=== PATIENT | male | born 1965 | race Caucasian/White ===

== ENCOUNTER 2021-08-15 11:19 | Inpatient (IN) ==
--- NOTE | 2021-08-15 11:33 | Emergency Department Note ---
Impression & Plan Acute hypoxemic respiratory failure due to COVID-19, Pneumonia due to COVID-19 virus ED Provider Note NAME: BETTY ORANTES AGE: 55 SEX: M : 1965 ARRIVES VIA: Ambulance INFORMANT: Patient, ED PROVIDER(S): Rogerio Garcia MD Chief Complaint: Shortness of breath and cough, Covid positive, low oxygen HPI: Patient does present with the above symptoms. Patient states that they recently tested positive for Covid about a week ago but he said symptoms for about 11 days. The patient did have a monoclonal antibody infusion yesterday but noticed his oxygen to be low today at 8889%. The patient has had productive cough of white sputum. Patient denies any loss of taste or smell but does have decreased p.o. intake. Patient states that he will have occasional coughing fits that does cause him to dry heave but the patient is not had any vomiting. The patient is a non-smoker no prior history of heart or lung disease. The patient [place] any history of DVT or PE. The patient has any recent travel or known sick contacts. The patient did have a monoclonal antibody treatment completed at [place] yesterday. Patient has had nausea. Patient denies any abdominal pain or chest pains. Patient had patient has been taking [id number] medications but without significant improvement in symptoms. Patient denies any lower extremity edema. ROS: See HPI for pertinent positives and negatives. A total of 10 systems were reviewed and otherwise negative. Past medical history: See below Surgical history: See below Social history: See below Physical Exam: GENERAL: Nasal cannula in place, wearing glasses, wearing a mask, non-toxic. EYE EXAM: Normal conjunctiva. PERRL, no anisocoria and EOM's grossly intact w/o pain. NECK: Supple, no nuchal rigidity, no adenopathy, non-tender. No signs of meningismus. LUNGS: Bibasilar crackles noted. Normal chest wall mechanics. HEART: NSR, no MRG. ABDOMEN: Abdomen soft, non-tender, normo-active bowel sounds, no masses, no rebound or guarding. BACK: No CVA TTP. SKIN: No rashes and no bruising. UPPER EXTREMITIES: Upper extremities are grossly normal. LOWER EXTREMITIES: Grossly normal, no edema. Negative Homans' sign bilaterally. NEURO EXAM: A&O x3, cranial nerves II-XII grossly intact, normal speech, moves all 4 extremities on command w/o issue. Differential diagnoses: Reactive airway disease, pneumonia, pneumothorax, COPD, CHF, infections, cardiac ischemia, pulmonary embolism, musculoskeletal, gastrointestinal, as well as other pathologies. Course: Patient was seen and evaluated the bedside. Full history physical exam was performed. EKG interpreted by me Normal sinus rhythm, rate of 82, normal FL, wide QRS, retinal branch block pattern. Normal axis. Slight elevation in one and aVL but without concavity. Imaging Studies: See Below Cardiac monitoring: An order was placed for continuous cardiac monitoring. The monitor shows a rate of 85 with sinus rhythm. MDM: Patient did present due to concern for recent Covid illness and hypoxia. Blood work was obtained along with a chest x-ray. Chest x-ray did show bilateral airspace opacities. White count is normal. Virtually normal hemoglobin at 13.7 and normal platelet count. Kidney function is unremarkable. Covid positive. Patient's EKG does not show any signs of acute STEMI. The patient does have slight elevation in one and aVL but there is no concavity and the patient denies any chest pains. A troponin was added. This was negative. There is no concavity on EKG and patient without chest pain with negative troponin do not believe the patient has a STEMI. I did speak the on-call hospitalist Desirae Rangel PA-C and the patient was admitted to the medicine service by Dr. Jarquin. Critical Care: I have personally spent 42 minutes of critical care time in direct management of this patient. This includes bedside care, interpretation of diagnostic studies, and testing, discussion with consultants, patient, and family members, and other require inpatient management activities. This 42 minutes is in excess of all separately billable procedures. Past Med/Surg History Medical History No pertinent past medical history Surgical History No pertinent past surgical history Family History Family/Other Adopted Social History Smoking Status: Never smoker Second Hand Exposure: No; Do You Dip or Chew Tobacco: No; Tobacco Cessation Education Requested by Patient: No Hx Alcohol Use: No Hx Substance Use: No Preferred Language: Vietnamese Communication Ability: Effective Delivery Truck Driver Required: No Beliefs That Will Affect Care: None Current Living Situation: Spouse Other Information That Helps Us Care for You: No Feels Safe at Home: Yes Safety Concerns: Feels Safe At This Time Assistive Devices: Glasses Immunizations: Unvaccinated for COVID-19 Allergies Allergies Allergy/AdvReac Type Severity Reaction Status Date / Time No Known Allergies Allergy Unverified 08/15/21 12:20 Home Meds Home Medications Medication Instructions Recorded Confirmed aspirin 81 mg tablet,delayed 81 mg PO DIRECTED 08/15/21 08/15/21 release cholecalciferol (vitamin D3) 50 0 mcg PO QAM 08/15/21 08/15/21 mcg (2,000 unit) tablet (Vitamin D3) dextromethorphan-guaifenesin ER 60 1 tab PO Q12H 08/15/21 08/15/21 mg-1,200 mg tab,extend release,12hr (Mucinex DM) ibuprofen 200 mg tablet 400 mg PO Q6H PRN 08/15/21 08/15/21 zinc 50 mg tablet 0 mg PO QAM 08/15/21 08/15/21 Results & Data (ED) Vital Signs Vital Signs - 24 hr 08/15/21 11:19 08/15/21 11:22 08/15/21 11:27 Temperature 37.6 C H Temperature Source Oral Pulse Rate 81 Pulse Rate [Apical] 84 Pulse Rate from SpO2 Sensor Pulse Rhythm [Apical] Regular Respiratory Rate 18 20 Respiratory Effort / Characteristics Non-Labored Spontaneous Respiratory Depth Normal Blood Pressure 126/69 Blood Pressure [Right Arm] 126/69 Blood Pressure Mean 88 Blood Pressure Mean [Right Arm] 88 Pulse Oximetry 88 L 95 Oxygen Delivery Method Room Air Nasal Cannula Room Air Oxygen Flow Rate 2 Sepsis Recent Fever Within 48 Hours No Sepsis New/Unexplained Change in Mental Status No Sepsis Action Taken by Nursing No Action Required Oxygen Flow Rate - Titration 2 Pulse Oximetry Post Tiitration 97 08/15/21 11:35 08/15/21 13:27 08/15/21 14:00 Temperature Temperature Source Pulse Rate 74 Pulse Rate [Apical] 76 Pulse Rate from SpO2 Sensor 75 Pulse Rhythm [Apical] Respiratory Rate 18 18 Respiratory Effort / Characteristics Non-Labored Spontaneous Respiratory Depth Normal Blood Pressure Blood Pressure [Right Arm] 126/81 Blood Pressure Mean Blood Pressure Mean [Right Arm] 96 Pulse Oximetry 98 96 97 Oxygen Delivery Method Nasal Cannula Nasal Cannula Nasal Cannula Oxygen Flow Rate 2 2 2 Sepsis Recent Fever Within 48 Hours Sepsis New/Unexplained Change in Mental Status Sepsis Action Taken by Nursing Oxygen Flow Rate - Titration Pulse Oximetry Post Tiitration Home Medications Current Medication List: was personally reviewed by me Laboratory Data Attestation: I reviewed the patient's lab results. Result diagrams: 08/16/21 07:05 08/16/21 07:05 Lab Results 08/15/21 08/15/21 08/15/21 Range/Units 11:43 11:43 12:21 WBC 6.76 (4.8-10.8) K/uL RBC 4.74 (4.7-6.1) M/uL Hgb 13.7 L (14.0-18.0) g/dL Hct 41.6 L (42-52) % MCV 87.8 (80-100) fL MCH 28.9 (25-34) pg MCHC 32.9 (32-36) g/dL RDW Std Deviation 45.0 (36.4-46.3) fL RDW Coeff of Zeferino 13.8 (11.5-14.5) % Plt Count 179 (130-400) K/uL MPV 8.9 (7.4-10.4) fL Immature Gran % (Auto) 1.0 % Neut % (Auto) 78.9 % Lymph % (Auto) 11.4 % Heard % (Auto) 8.1 % Eos % (Auto) 0.3 % Baso % (Auto) 0.3 % Neut # (Auto) 5.33 (1.4-6.5) K/uL Lymph # (Auto) 0.77 L (1.2-3.4) K/uL Heard # (Auto) 0.55 (0.11-0.59) K/uL Eos # (Auto) 0.02 (0-0.5) K/uL Baso # (Auto) 0.02 (0-0.2) K/uL Immature Gran # (Auto) 0.07 H (0.00-0.02) K/uL Sodium 135 L (136-145) mmol/L Potassium 4.1 (3.5-5.1) mmol/L Chloride 104 (98-107) mmol/L Carbon Dioxide 27 (21-32) mmol/L Anion Gap 4.0 (3-11) BUN 16 (7-18) mg/dl Creatinine 0.87 (0.6-1.4) mg/dl Est Cr Clr Drug Dosing 104.9 ml/min Est GFR ( Amer) 111.8 ml/min Est GFR (Non-Af Amer) 96.5 ml/min BUN/Creatinine Ratio 18.1 (10-20) Glucose 102 H (70-99) mg/dl Calcium 8.8 (8.5-10.1) mg/dl Total Bilirubin 0.7 (0.2-1) mg/dl AST 24 (15-37) U/L ALT 23 (12-78) U/L Alkaline Phosphatase 47 (45-117) U/L Total Protein 7.5 (6.4-8.2) gm/dl Albumin 2.9 L (3.4-5.0) gm/dl Globulin 4.6 H (2.5-4.0) gm/dl Albumin/Globulin Ratio 0.6 L (0.9-2) TSH 1.130 (0.300-4.500) uIu/ml SARS-CoV-2 (PCR) POSITIVE A* (Negative) Administered Medications Benzonatate (Benzonatate 100 Mg Capsule) 100 mg PO TID FRANCIS Stop: 09/14/21 20:59 Last Admin: 08/15/21 21:20 Dose: 100 mg Documented by: [id number] Enoxaparin Sodium (Enoxaparin Inj 40 Mg/0.4 Ml Syr) 40 mg SQ HS FRANCIS Stop: 09/14/21 20:59 Last Admin: 08/15/21 21:20 Dose: 40 mg Documented by: [id number] Guaifenesin/Codeine Phosphate (Guaifenesin/Codeine 200mg/20mg 10ml Udc) 10 ml PO Q6H PRN PRN Reason: Cough Stop: 09/14/21 15:58 Last Admin: 08/16/21 00:45 Dose: 10 ml Documented by: [id number] Discontinued Medications Acetaminophen (Acetaminophen 500 Mg Tab) 1,000 mg PO NOW STA Stop: 08/15/21 11:36 Last Admin: 08/15/21 12:25 Dose: 1,000 mg Documented by: [id number] Dexamethasone Sodium Phosphate (DexamethasonePf 10 Mg/Ml Vial) 6 mg IV NOW ONE Stop: 08/15/21 11:35 Last Admin: 08/15/21 12:26 Dose: 6 mg Documented by: [id number] Guaifenesin/Codeine Phosphate (Guaifenesin/Codeine 100mg/10mg 5ml Udc) 10 ml PO NOW STA Stop: 08/15/21 14:43 Last Admin: 08/15/21 15:05 Dose: 10 ml Documented by: [id number] Sodium Chloride (Nss 1000ml) 1,000 mls @ 999 mls/hr IV .Q1H1M FRANCIS Stop: 08/15/21 12:45 Last Infusion: 08/15/21 13:30 Dose: 0 mls/hr Documented by: [id number] Admin: 08/15/21 12:24 Dose: 999 mls/hr Documented by: [id number] Imaging Data Radiologist's Impression: Chest X-Ray 08/15/21 11:35 XR chest 1V portable CLINICAL HISTORY: weakness COMPARISON STUDY: No previous studies for comparison. FINDINGS: Lung volumes are normal. There is no pneumothorax or pleural effusion. There is bilateral perihilar interstitial thickening. There are also bilateral airspace opacities. IMPRESSION: Bilateral airspace opacities and interstitial thickening. The findings favor an infectious process. Radiographic follow-up to ensure resolution is recommended. ACT 112: Negative or not required by law. Electronically signed by: Rush Dykes M.D. 08/15/2021 12:22 PM Discharge Plan Visit Data Chief Complaint: Shortness of Breath/Dyspnea Stated Complaint: ILLNESS, COVID + ED Provider: Rogerio Garcia Discharge Problem: Acute hypoxemic respiratory failure due to COVID-19, Pneumonia due to COVID-19 virus
[2021-08-15] MEDS ORDERED: dexAMETHasone**PF** 10 MG/ML VIAL IV ONE (11:34)
[2021-08-15] MEDS ORDERED: ACETAMINOPHEN 500 MG TAB PO STA (11:35)
[2021-08-15] MEDS ORDERED: SODIUM CHLORIDE 0.9% 1000ML 1,000 ML IV SCH (11:45)
[2021-08-15 11:58] LABS: Basophils # (auto) 0.02 K/uL (0-0.2); Basophils % (auto) 0.3 %; Eosinophils # (auto) 0.02 K/uL (0-0.5); Eosinophils % (auto) 0.3 %; Hematocrit (blood only) 41.6 % (42-52); Hemoglobin 13.7 g/dL (14.0-18.0); Immature Granulocytes # (auto) 0.07 K/uL (0.00-0.02); Lymphocytes # (auto) 0.77 K/uL (1.2-3.4); Lymphocytes % (auto) 11.4 %; Mean Corpuscular Hemoglobin 28.9 pg (25-34); Mean Corpuscular Hgb Conc 32.9 g/dL (32-36); Mean Corpuscular Volume 87.8 fL (80-100); Mean Platelet Volume 8.9 fL (7.4-10.4); Monocytes # (auto) 0.55 K/uL (0.11-0.59); Monocytes % (auto) 8.1 %; Neutrophils # (auto) 5.33 K/uL (1.4-6.5); Neutrophils % (auto) 78.9 %; Platelet Count 179 K/uL (130-400); RDW Coefficient of Variation 13.8 % (11.5-14.5); Red Blood Count 4.74 M/uL (4.7-6.1); White Blood Count 6.76 K/uL (4.8-10.8)
[2021-08-15 12:22] LABS: Albumin Level 2.9 gm/dl (3.4-5.0); BUN Creatinine Ratio 18.1 (10-20); Calcium 8.8 mg/dl (8.5-10.1); Creatinine Clr Calc Pharmacy 104.9 ml/min; Est GFR (African American) 111.8 ml/min; Est GFR (Non-African American) 96.5 ml/min; Potassium 4.1 mmol/L (3.5-5.1)
--- NOTE | 2021-08-15 12:23 | XRay Report ---
XR chest 1V portable CLINICAL HISTORY: weakness COMPARISON STUDY: No previous studies for comparison. FINDINGS: Lung volumes are normal. There is no pneumothorax or pleural effusion. There is bilateral p erihilar interstitial thickening. There are also bilateral airspace opacities. IMPRESSION: Bilateral airspace opacities and interstitial thickening. The findings favor an infectio us process. Radiographic follow-up to ensure resolution is recommended. ACT 112: Negative or not required by law. Electronically signed by: Rush Dykes M.D. 08/15/2021 12:22 PM
[2021-08-15 12:32] LABS: Albumin Globulin Ratio 0.6 (0.9-2); Bilirubin,Total 0.7 mg/dl (0.2-1); Globulin 4.6 gm/dl (2.5-4.0); Thyroid Stimulating Hormone 1.13 uIu/ml (0.300-4.500); Total Protein 7.5 gm/dl (6.4-8.2)
--- NOTE | 2021-08-15 14:04 | History & Physical Report ---
Date of Service August 15, 2021 Assessment & Plan (1) Pneumonia due to COVID-19 virus: Plan: Patient is unvaccinated. Has been symptomatic for 11 days, so will not give remdesivir as low benefit at this point. Will continue with daily dexamethasone and other supportive care efforts such as Robitussin AC and Tessalon perles. He notably received a MAB infusion yesterday, which may improve his symptoms as the days progress. Monitor inflammatory markers. (2) Hypoxia: Plan: Oxygen supplementation to keep oxygen saturation >92% (3) DVT prophylaxis: Plan: Lovenox Full Code Dispo-to home when medically stable Vanessa Jarquin DO [facility] Hospitalist History of Present Illness Chief Complaint: increased SOB/coughing Primary Care Provider: Breana Melo MD 55 yo M with recent h/o testing positive for covid infection on 08/10, symptomatic since 08/05 presented with worsened cough and dyspnea in the last 24 hours. He received a monoclonal antibody infusion yesterday at [facility]. He reports worsening cough that was productive of whitish clear phlegm, slight fever, no chills, no diarrhea. He reports low appetite and no changes in taste or smell. His is also sick, and he is unvaccinated. Denies history smoking or lung disease. Denies chest pain or pain in general. Overall reports generalized malaise. Allergies Allergy/AdvReac Type Severity Reaction Status Date / Time No Known Allergies Allergy Unverified 08/15/21 12:20 Home Medications Medication Instructions Recorded Confirmed Type aspirin 81 mg tablet,delayed 81 mg PO DIRECTED 08/15/21 08/15/21 History release cholecalciferol (vitamin D3) 50 0 mcg PO QAM 08/15/21 08/15/21 History mcg (2,000 unit) tablet (Vitamin D3) dextromethorphan-guaifenesin ER 60 1 tab PO Q12H 08/15/21 08/15/21 History mg-1,200 mg tab,extend release,12hr (Mucinex DM) ibuprofen 200 mg tablet 400 mg PO Q6H PRN 08/15/21 08/15/21 History zinc 50 mg tablet 0 mg PO QAM 08/15/21 08/15/21 History Past Med/Surg History Medical History No pertinent past medical history Surgical History No pertinent past surgical history Family History Family/Other Adopted Social History Smoking Status: Never smoker Second Hand Exposure: No; Do You Dip or Chew Tobacco: No; Tobacco Cessation Education Requested by Patient: No Hx Alcohol Use: No Hx Substance Use: No Preferred Language: Swedish Communication Ability: Effective Dance Costume Designer Required: No Beliefs That Will Affect Care: None Current Living Situation: Spouse Other Information That Helps Us Care for You: No Feels Safe at Home: Yes Safety Concerns: Feels Safe At This Time Assistive Devices: Glasses Review of Systems Review of Systems: All systems were reviewed and negative except as indicated in HPI above. Physical Exam Physical Exam: CONSTITUTIONAL: WNWD, vitals as above, generally well- appearing, NAD EYES: normal conjunctivae, no scleral icterus ENT: external ear and nose normal, MMM NECK: trachea midline RESPIRATORY: clear to auscultation bilaterally, no crackles, rales or wheezes, normal respiratory effort CARDIOVASCULAR: regular rate and rhythm, S1 and 2 heard without murmurs, gallops or rubs, no JVD, no peripheral edema GASTROINTESTINAL: soft, nontender, ND, no guarding MUSCULOSKELETAL: strength 5/5 throughout, head is normocephalic and atraumatic SKIN: warm and dry NEUROLOGIC: CN 2-12 grossly intact, no sensory deficit, normal cognition, normal speech, no tremor, no gross focal deficits. PSYCHIATRIC: alert cooperative and oriented to person, place and time. Euthymic mood, makes good eye contact, language grossly intact, recent and remote memory grossly intact. Results & Data Results & Data ([facility]) Vital Signs (Past 12 Hours) Vital Signs Temp Pulse Pulse Resp BP BP Pulse Ox 08/15/21 11:35 98 08/15/21 11:27 84 20 126/69 95 08/15/21 11:19 37.6 C H 81 18 126/69 88 L Laboratory Results Short CBC 08/15/21 Range/Units 11:43 WBC 6.76 (4.8-10.8) K/uL Hgb 13.7 L (14.0-18.0) g/dL Hct 41.6 L (42-52) % Plt Count 179 (130-400) K/uL BMP 08/15/21 11:43 Sodium 135 L Potassium 4.1 Chloride 104 Carbon Dioxide 27 BUN 16 Creatinine 0.87 Glucose 102 H Calcium 8.8 Liver Function 08/15/21 Range/Units 11:43 Total Bilirubin 0.7 (0.2-1) mg/dl AST 24 (15-37) U/L ALT 23 (12-78) U/L Alkaline Phosphatase 47 (45-117) U/L Albumin 2.9 L (3.4-5.0) gm/dl Diagnostic Findings Chest X-Ray 08/15/21 11:35 XR chest 1V portable CLINICAL HISTORY: weakness COMPARISON STUDY: No previous studies for comparison. FINDINGS: Lung volumes are normal. There is no pneumothorax or pleural effusion. There is bilateral perihilar interstitial thickening. There are also bilateral airspace opacities. IMPRESSION: Bilateral airspace opacities and interstitial thickening. The findings favor an infectious process. Radiographic follow-up to ensure resolution is recommended. ACT 112: Negative or not required by law. Electronically signed by: Rush Dykes M.D. 08/15/2021 12:22 PM Code Status & VTE Plan VTE Prophylaxis Plan VTE Prophylaxis will be ordered: Yes
--- NOTE | 2021-08-15 14:16 | Electrocardiogram Report ---
Test Reason : Blood Pressure : / mmHG Vent. Rate : 082 BPM Atrial Rate : 082 BPM P-R Int : 184 ms QRS Dur : 122 ms QT Int : 382 ms P-R-T Axes : 032 -01 031 degrees QTc Int : 446 ms Normal sinus rhythm Incomplete right bundle branch block Borderline ECG No previous ECGs available Confirmed by Al Portillo ([id number]) on 08/15/2021 2:16:28 PM Referred By: REFERRED SELF Confirmed By:Destin Portillo
[2021-08-15] MEDS ORDERED: guaiFENesin/CODEINE 100MG/10MG 5ML UDC PO STA (14:42)
[2021-08-15] MEDS ORDERED: ACETAMINOPHEN 325 MG TAB PO PRN (15:59)
[2021-08-15] MEDS ORDERED: POLYETHYLENE (MIRALAX) 17 GM PACK PO PRN (15:59)
[2021-08-15] MEDS ORDERED: ONDANSETRON INJ 2 MG/ML 2 ML VIAL IV PRN (15:59)
[2021-08-15 17:51] LABS: Appearance Urine Clear (Clear); Bilirubin Urine Negative (Negative); Blood Urine Negative (Negative); Color Urine Yellow; Glucose Urine UA Negative (Negative); Ketones Urine Trace (Negative); Leukocyte Esterase Urine Negative (Negative); Nitrite Urine Negative (Negative); Protein Urine Negative (Negative); Specific Gravity Urine 1.007 (1.000-1.030); Urobilinogen Urine Negative (Negative); pH Urine 6.5 (4.5-7.5)
[2021-08-15] MEDS: ENOXAPARIN INJ 40 MG/0.4 ML SYR SQ SCH (21:20)
[2021-08-15] MEDS: BENZONATATE 100 MG CAPSULE PO SCH (21:20)
[2021-08-16 07:55] LABS: Hematocrit (blood only) 41.4 % (42-52); Hemoglobin 13.5 g/dL (14.0-18.0); Mean Corpuscular Hemoglobin 28.7 pg (25-34); Mean Corpuscular Hgb Conc 32.6 g/dL (32-36); Mean Corpuscular Volume 88.1 fL (80-100); Mean Platelet Volume 8.9 fL (7.4-10.4); Platelet Count 224 K/uL (130-400); RDW Coefficient of Variation 13.6 % (11.5-14.5); RDW Standard Deviation 44.5 fL (36.4-46.3); White Blood Count 5.03 K/uL (4.8-10.8)
[2021-08-16 08:18] LABS: BUN Creatinine Ratio 21.3 (10-20); C Reactive Protein 9.03 mg/dl (0-0.29); Calcium 8.7 mg/dl (8.5-10.1); Creatinine Clr Calc Pharmacy 117.1 ml/min; Est GFR (Non-African American) 100.9 ml/min; Magnesium 2.4 mg/dl (1.8-2.4); Phosphorus 3.7 mg/dl (2.5-4.9); Potassium 4.2 mmol/L (3.5-5.1)
[2021-08-16] MEDS: BENZONATATE 100 MG CAPSULE PO SCH ×3 (10:09→21:28)
[2021-08-16] MEDS: dexAMETHasone 6 MG in SYRINGE 0 ML IV SCH (10:09)
--- NOTE | 2021-08-16 18:32 | Hospitalist Progress Note ---
Date of Service August 16, 2021 Assessment & Plan (1) Pneumonia due to COVID-19 virus: Plan: Patient is unvaccinated. Symptoms ongoing for 11 days prior to arrival so low benefit for remdesivir which was not started. Will continue with daily dexamethasone and other supportive care efforts such as Robitussin AC and Tessalon perles. He notably received a MAB infusion one day prior to arrival, which may improve his symptoms as the days progress. CRP was 9.0 today. Reports improvement overall; still requiring oxygen supplementation. (2) Hypoxia: Plan: Oxygen supplementation to keep oxygen saturation >92% (3) DVT prophylaxis: Plan: Lovenox Full Code Dispo-to home when medically stable, possibly tomorrow depending on how he feels and his oxygen needs. Discussed case and plan with his by phone. [facility] and Anticipated Discharge Date Admission Date: August 15, 2021 Subjective 55-year-old unvaccinated man presented with Covid pneumonia and hypoxia. Still requiring a small amount of oxygen supplementation today oxygenating 93% on 2 L/min nasal cannula. Patient did take his oxygen off and ambulated and saturation he reported was 88%. He feels better overall today and reports his symptoms are improved. I did discuss the situation with his by phone and went through all his lab values for her as she was a prior lab aide. All quest ions answered. Review of Systems Review of Systems: All systems were reviewed and negative except as indicated above. Physical Exam Physical Exam: CONSTITUTIONAL: WNWD, vitals as above, generally well- appearing, NAD EYES: normal conjunctivae, no scleral icterus ENT: external ear and nose normal, MMM NECK: trachea midline RESPIRATORY: clear to auscultation bilaterally, no crackles, rales or wheezes, normal respiratory effort CARDIOVASCULAR: regular rate and rhythm, S1 and 2 heard without murmurs, gallops or rubs, no JVD, no peripheral edema GASTROINTESTINAL: soft, nontender, ND, no guarding MUSCULOSKELETAL: strength 5/5 throughout, head is normocephalic and atraumatic SKIN: warm and dry NEUROLOGIC: CN 2-12 grossly intact, no sensory deficit, normal cognition, normal speech, no tremor, no gross focal deficits. PSYCHIATRIC: alert cooperative and oriented to person, place and time. Euthymic mood, makes good eye contact, language grossly intact, recent and remote memory grossly intact. Results & Data Results & Data ([facility]) Vital Signs (Past 12 Hours) Vital Signs Pulse Resp BP Pulse Ox 08/16/21 15:24 67 18 123/71 95 Laboratory Results Short CBC 08/16/21 Range/Units 07:05 WBC 5.03 (4.8-10.8) K/uL Hgb 13.5 L (14.0-18.0) g/dL Hct 41.4 L (42-52) % Plt Count 224 (130-400) K/uL BMP 08/16/21 07:05 Sodium 139 Potassium 4.2 Chloride 108 H Carbon Dioxide 24 BUN 17 Creatinine 0.78 Glucose 118 H Calcium 8.7 Medications Administered Current Inpatient Medications Acetaminophen (Acetaminophen 325 Mg Tab) 650 mg PO Q4H PRN PRN Reason: pain/fever Stop: 09/14/21 15:58 Benzonatate (Benzonatate 100 Mg Capsule) 100 mg PO TID FRANCIS Stop: 09/14/21 20:59 Last Admin: 08/16/21 14:23 Dose: 100 mg Documented by: Enoxaparin Sodium (Enoxaparin Inj 40 Mg/0.4 Ml Syr) 40 mg SQ HS FRANCIS Stop: 09/14/21 20:59 Last Admin: 08/15/21 21:20 Dose: 40 mg Documented by: Guaifenesin/Codeine Phosphate (Guaifenesin/Codeine 200mg/20mg 10ml Udc) 10 ml PO Q6H PRN PRN Reason: Cough Stop: 09/14/21 15:58 Last Admin: 08/16/21 00:45 Dose: 10 ml Documented by: Dexamethasone 6 mg/ Syringe 1.5 mls @ 1 mls/min IV DAILY FRANCIS Stop: 09/15/21 08:59 Last Admin: 08/16/21 10:09 Dose: 1 mls/min Documented by: Ondansetron HCl (Ondansetron Inj 2 Mg/Ml 2 Ml Vial) 4 mg IV Q6H PRN PRN Reason: Nausea Stop: 09/14/21 15:58 Polyethylene Glycol (Polyethylene (Miralax) 17 Gm Pack) 17 gm PO DAILY PRN PRN Reason: Constipation Stop: 09/14/21 15:58
[2021-08-16] MEDS: ENOXAPARIN INJ 40 MG/0.4 ML SYR SQ SCH (21:28)
[2021-08-17] MEDS: BENZONATATE 100 MG CAPSULE PO SCH ×2 (08:12→12:52)
[2021-08-17] MEDS: dexAMETHasone 6 MG in SYRINGE 0 ML IV SCH (08:12)
[2021-08-17 09:46] LABS: Hematocrit (blood only) 42.7 % (42-52); Hemoglobin 14.3 g/dL (14.0-18.0); Mean Corpuscular Hemoglobin 29.2 pg (25-34); Mean Corpuscular Hgb Conc 33.5 g/dL (32-36); Mean Corpuscular Volume 87.3 fL (80-100); Platelet Count 282 K/uL (130-400); RDW Coefficient of Variation 13.3 % (11.5-14.5); RDW Standard Deviation 42.7 fL (36.4-46.3); Red Blood Count 4.89 M/uL (4.7-6.1); White Blood Count 8.75 K/uL (4.8-10.8)
[2021-08-17 10:25] LABS: BUN Creatinine Ratio 23.7 (10-20); Calcium 9.3 mg/dl (8.5-10.1); Creatinine Clr Calc Pharmacy 91.3 ml/min; Est GFR (African American) 97.1 ml/min; Est GFR (Non-African American) 83.8 ml/min; Potassium 3.8 mmol/L (3.5-5.1)
[2021-08-17 10:26] LABS: C Reactive Protein 2.93 mg/dl (0-0.29)
--- NOTE | 2021-08-17 13:56 | Discharge Summary ---
Date of Service August 17, 2021 Admission HPI Per Admitting Provider 55 yo M with recent h/o testing positive for covid infection on 08/10, symptomatic since 08/05 presented with worsened cough and dyspnea in the last 24 hours. He received a monoclonal antibody infusion yesterday at [facility]. He reports worsening cough that was productive of whitish clear phlegm, slight fever, no chills, no diarrhea. He reports low appetite and no changes in taste or smell. His is also sick, and he is unvaccinated. Denies history smoking or lung disease. Denies chest pain or pain in general. Overall reports generalized malaise. Admission Exam Per Admitting Provider CONSTITUTIONAL: WNWD, vitals as above, generally well-appearing, NAD EYES: normal conjunctivae, no scleral icterus ENT: external ear and nose normal, MMM NECK: trachea midline RESPIRATORY: clear to auscultation bilaterally, no crackles, rales or wheezes, normal respiratory effort CARDIOVASCULAR: regular rate and rhythm, S1 and 2 heard without murmurs, gallops or rubs, no JVD, no peripheral edema GASTROINTESTINAL: soft, nontender, ND, no guarding MUSCULOSKELETAL: strength 5/5 throughout, head is normocephalic and atraumatic SKIN: warm and dry NEUROLOGIC: CN 2-12 grossly intact, no sensory deficit, normal cognition, normal speech, no tremor, no gross focal deficits. PSYCHIATRIC: alert cooperative and oriented to person, place and time. Euthymic mood, makes good eye contact, language grossly intact, recent and remote memory grossly intact. Principal Diagnosis Pneumonia due to COVID-19 virus Hypoxia-resolved Discharge Exam CONSTITUTIONAL: WNWD, vitals as above, generally well-appearing, NAD EYES: normal conjunctivae, no scleral icterus ENT: external ear and nose normal, MMM NECK: trachea midline RESPIRATORY: clear to auscultation bilaterally, no crackles, rales or wheezes, normal respiratory effort CARDIOVASCULAR: regular rate and rhythm, S1 and 2 heard without murmurs, gallops or rubs, no JVD, no peripheral edema GASTROINTESTINAL: soft, nontender, ND, no guarding MUSCULOSKELETAL: strength 5/5 throughout, head is normocephalic and atraumatic SKIN: warm and dry NEUROLOGIC: CN 2-12 grossly intact, no sensory deficit, normal cognition, normal speech, no tremor, no gross focal deficits. PSYCHIATRIC: alert cooperative and oriented to person, place and time. Euthymic mood, makes good eye contact, language grossly intact, recent and remote memory grossly intact. Discharge Data Allergies Allergy/AdvReac Type Severity Reaction Status Date / Time No Known Allergies Allergy Unverified 08/15/21 12:20 Consultations 08/15/21 13:34 ED Decision to Admit Stat Ordered Studies Laboratory Results WBC 8.75 K/uL (4.8-10.8) 08/17/21 09:32 RBC 4.89 M/uL (4.7-6.1) 08/17/21 09:32 Hgb 14.3 g/dL (14.0-18.0) 08/17/21 09:32 Hct 42.7 % (42-52) 08/17/21 09:32 MCV 87.3 fL (80-100) 08/17/21 09:32 MCH 29.2 pg (25-34) 08/17/21 09:32 MCHC 33.5 g/dL (32-36) 08/17/21 09:32 RDW Std Deviation 42.7 fL (36.4-46.3) 08/17/21 09:32 RDW Coeff of Zeferino 13.3 % (11.5-14.5) 08/17/21 09:32 Plt Count 282 K/uL (130-400) 08/17/21 09:32 MPV 9.0 fL (7.4-10.4) 08/17/21 09:32 Immature Gran % (Auto) 1.0 % 08/15/21 11:43 Neut % (Auto) 78.9 % 08/15/21 11:43 Lymph % (Auto) 11.4 % 08/15/21 11:43 Baxter % (Auto) 8.1 % 08/15/21 11:43 Eos % (Auto) 0.3 % 08/15/21 11:43 Baso % (Auto) 0.3 % 08/15/21 11:43 Neut # (Auto) 5.33 K/uL (1.4-6.5) 08/15/21 11:43 Lymph # (Auto) 0.77 K/uL (1.2-3.4) L 08/15/21 11:43 Baxter # (Auto) 0.55 K/uL (0.11-0.59) 08/15/21 11:43 Eos # (Auto) 0.02 K/uL (0-0.5) 08/15/21 11:43 Baso # (Auto) 0.02 K/uL (0-0.2) 08/15/21 11:43 Immature Gran # (Auto) 0.07 K/uL (0.00-0.02) H 08/15/21 11:43 Sodium 137 mmol/L (136-145) 08/17/21 09:32 Potassium 3.8 mmol/L (3.5-5.1) 08/17/21 09:32 Chloride 107 mmol/L (98-107) 08/17/21 09:32 Carbon Dioxide 24 mmol/L (21-32) 08/17/21 09:32 Anion Gap 6.0 (3-11) 08/17/21 09:32 BUN 24 mg/dl (7-18) H 08/17/21 09:32 Creatinine 1.00 mg/dl (0.6-1.4) 08/17/21 09:32 Est Cr Clr Drug Dosing 91.3 ml/min 08/17/21 09:32 Est GFR ( Amer) 97.1 ml/min 08/17/21 09:32 Est GFR (Non-Af Amer) 83.8 ml/min 08/17/21 09:32 BUN/Creatinine Ratio 23.7 (10-20) H 08/17/21 09:32 Glucose 119 mg/dl (70-99) H 08/17/21 09:32 Calcium 9.3 mg/dl (8.5-10.1) 08/17/21 09:32 Phosphorus 3.7 mg/dl (2.5-4.9) 08/16/21 07:05 Magnesium 2.4 mg/dl (1.8-2.4) 08/16/21 07:05 Total Bilirubin 0.7 mg/dl (0.2-1) 08/15/21 11:43 AST 24 U/L (15-37) 08/15/21 11:43 ALT 23 U/L (12-78) 08/15/21 11:43 Alkaline Phosphatase 47 U/L (45-117) 08/15/21 11:43 Troponin I < 0.015 ng/ml (0-0.045) 08/15/21 16:37 C-Reactive Protein 2.93 mg/dl (0-0.29) H 08/17/21 09:32 Total Protein 7.5 gm/dl (6.4-8.2) 08/15/21 11:43 Albumin 2.9 gm/dl (3.4-5.0) L 08/15/21 11:43 Globulin 4.6 gm/dl (2.5-4.0) H 08/15/21 11:43 Albumin/Globulin Ratio 0.6 (0.9-2) L 08/15/21 11:43 Procalcitonin < 0.05 ng/ml (0-0.5) 08/16/21 07:05 TSH 1.130 uIu/ml (0.300-4.500) 08/15/21 11:43 Urine Color Yellow 08/15/21 17:38 Urine Appearance Clear (Clear) 08/15/21 17:38 Urine pH 6.5 (4.5-7.5) 08/15/21 17:38 Ur Specific [place] 1.007 (1.000-1.030) 08/15/21 17:38 Urine Protein Negative (Negative) 08/15/21 17:38 Urine Glucose (UA) Negative (Negative) 08/15/21 17:38 Urine Ketones Trace (Negative) H 08/15/21 17:38 Urine Blood Negative (Negative) 08/15/21 17:38 Urine Nitrite Negative (Negative) 08/15/21 17:38 Urine Bilirubin Negative (Negative) 08/15/21 17:38 Urine Urobilinogen Negative (Negative) 08/15/21 17:38 Ur Leukocyte Esterase Negative (Negative) 08/15/21 17:38 SARS-CoV-2 (PCR) POSITIVE (Negative) A* 08/15/21 12:21 Impressions Chest X-Ray 08/15/21 11:35 XR chest 1V portable CLINICAL HISTORY: weakness COMPARISON STUDY: No previous studies for comparison. FINDINGS: Lung volumes are normal. There is no pneumothorax or pleural effusion. There is bilateral perihilar interstitial thickening. There are also bilateral airspace opacities. IMPRESSION: Bilateral airspace opacities and interstitial thickening. The findings favor an infectious process. Radiographic follow-up to ensure resolution is recommended. ACT 112: Negative or not required by law. Electronically signed by: Rush Dykes M.D. 08/15/2021 12:22 PM Hospital Course (1) Pneumonia due to COVID-19 virus: (2) Hypoxia: 55-year-old unvaccinated patient presented with ongoing symptoms of COVID- 19 infection for approximate 11 days prior to arrival. He had received a monoclonal antibody infusion at a local outside hospital 1 day prior to arrival. Despite this he continued to experience hypoxia and shortness of breath and was admitted and placed on Decadron therapy. He was given supportive care therapy such as Robitussin-AC and Tessalon Perles while admitted. CRP was noted to be 9 on admission improving with therapy to 2.93 prior to discharge. He complied with efforts to prone and continue to improve. By day of discharge he was oxygenating well on room air and passed a two-step test by respiratory requiring no oxygen supplementation with ambulation. He was discharged in stable condition with close primary care follow-up recommended. Chest x-ray in 4 to 6 weeks is recommended to ensure complete resolution of pneumonia. A Covid vaccination was offered to this patient as well as a flu vaccination and he declined both. He verbalized understanding that if his oxygen saturation gets worse at home or if he spikes a fever or experiences a worsening of his symptoms he should return or seek immediate medical attention. Total Time Total Time Spent Total Time Spent (In Minutes): 60 Discharge Plan Discharge Items Patient Disposition: Home - Self-Care Reason For Visit: COVID PNEUMONIA, HYPOXIA Discharge Diagnosis: Pneumonia due to COVID-19 virus Hypoxia-resolved Condition on Discharge: Good Activity: Resume your previous activity Non-emergency contact: Primary Care Provider Call non-emergency contact if: you have any medication questions and your symptoms worsen Follow-up/Referrals: Breana Melo MD [Primary Care Provider] - 09/04/21 8:20 am Diet: Regular Addtl Attending Provider Instructions: Please take all medications as instructed on discharge as below. You have been provided with 8 additional days of Decadron therapy to continue helping with inflammation and pneumonia in your lungs. There are many side effects of steroids including insomnia, irritability, weight gain and others. If you experience negative side effects please discuss with your doctor regarding coming off this early. You have also been provided with cough syrup that may cause drowsiness but will help with cough as needed. This is not a scheduled medication and only to be taken as needed for coughing symptoms. Please do not drive on this medication. It is recommended that you follow-up with your primary care doctor within 1 week of discharge from the hospital to ensure you are symptoms are are continuing to improve since returning home. Repeat chest x-ray in 4 to 6 weeks is recommended to ensure complete resolution of pneumonia. Home isolation is recommended for at least 10 days post symptom onset, coming off isolation only if you are asymptomatic. It is still recommended to observe all masking guidance in community areas and social distancing as appropriate. Please consider vaccination with one of the 3 Covid vaccines available on the market. Please also consider a seasonal flu vaccination this year. It was a pleasure taking care of you! Please call if you have any questions or problems. You can reach a [facility] hospitalist on duty at [facility] 24 hours a day by calling [phone]. Take care of yourself. Vanessa Jarquin, DO [facility] Center[facility] Pending Studies at Discharge: No Stand-Alone Forms: My [facility] Medications and DC Order Prescriptions: New dexamethasone [Decadron] 6 mg tablet 6 mg PO DAILY Qty: 8 RF: 0 codeine-guaifenesin 10-100 mg/5 mL Liquid 10 ml PO Q6H PRN (Reason: cough) Qty: 120 RF: 0 Continued aspirin 81 mg Tablet,Delayed Release (Dr/Ec) 81 mg PO DIRECTED RF: 0 ibuprofen 200 mg Tablet 400 mg PO Q6H PRN (Reason: aches) RF: 0 zinc 50 mg Tablet 0 mg PO QAM RF: 0 cholecalciferol (vitamin D3) [Vitamin D3] 50 mcg (2,000 unit) Tablet 0 mcg PO QAM RF: 0 Discontinued dextromethorphan-guaifenesin [Mucinex DM] 60-1,200 mg Tablet Extended Release 12 Hr 1 tab PO Q12H RF: 0 Discharge Orders: Discharge Order (Routine); Ordered 08/17/21 Ordered By: Vanessa Jarquni Admission Data Admit Date/Time: 08/15/21 14:02 Attending Provider: Vanessa Jarquin Admit Provider: Vanessa Jarquin Primary Care Provider: Breana Melo Other Providers: Vanessa Jarquin
== END 2021-08-17 15:48 | disposition home or self-care (01) | DRG 177 ==
LOC: ED 11:19 → EDINP 14:02